=== PATIENT | male | born 1985 | race Caucasian/White ===

== ENCOUNTER 2018-12-04 15:40 | Inpatient (IN) | payer OTHER ==
[~2018-12-04] VITALS: Ht 188 cm; Wt 116.9 kg
[~2018-12-04 15:40] MED LIST: LAMO100T83 PO; TOPI25CA PO
[2018-12-04] MEDS ORDERED: LIDOCAINE/MYLANTA 40 ML BTL PO ONE (16:30)
[2018-12-04] MEDS ORDERED: SOD CHLORIDE 0.9% 100 ML ONE (18:13)
[2018-12-04] MEDS ORDERED: IOHEXOL 300MG/ML 150 ML BTL ONE (18:13)
[2018-12-04] MEDS ORDERED: ONDANSETRON 4 MG INJ IV PRN (18:30)
[2018-12-04] MEDS ORDERED: ACETAMINOPHEN 325 MG TAB PO PRN ×2 (18:30→19:00)
[2018-12-04] MEDS ORDERED: DOCUSATE SODIUM 100 MG CAP PO PRN (19:00)
[2018-12-04] MEDS ORDERED: HYDROCODONE/APAP (5/325) TAB PO PRN (19:00)
[2018-12-04] MEDS ORDERED: ONDANSETRON 4 MG TAB PO PRN (19:00)
[2018-12-04] MEDS ORDERED: NACL 0.9% 3 ML SYG IV SCH (19:00)
[2018-12-04] MEDS: HEPARIN 5,000 UNIT/1 ML VIAL SC SCH (21:02)
[2018-12-04 22:15] VITALS: BP 109/67; PULSE 83
[2018-12-04 22:24] VITALS: Ht 188 cm; Wt 116.9 kg
[2018-12-04] MEDS: FAMOTIDINE 20 MG TAB PO SCH (22:53)
[2018-12-05] MEDS: HEPARIN 5,000 UNIT/1 ML VIAL SC SCH ×2 (02:48→14:00)
[2018-12-05 03:00] VITALS: BP 91/58; PULSE 54
[2018-12-05] MEDS ORDERED: DEXTROSE 5%-0.45% NACL 1,000 ML IV SCH (07:00)
[2018-12-05 07:47] VITALS: BP 101/64; PULSE 50; RESP 18
[2018-12-05] MEDS: FAMOTIDINE 20 MG TAB PO SCH (08:41)
[2018-12-05] MEDS ORDERED: LIDOCAINE 1% (MDV) 20 ML INJ ONE (12:14)
[2018-12-05] MEDS ORDERED: TOPIRAMATE 25 MG TAB PO SCH (21:00)
[2018-12-05] MEDS ORDERED: LAMOTRIGINE 25 MG TAB PO SCH (21:00)
== END 2018-12-05 19:05 | disposition home health service (06) | DRG 607 ==
LOC: FTE 15:40 → MS1 18:03
PROVIDERS: ADMIT Internal Medicine; ATTEND Internal Medicine
PROC: 0J9730Z Drainage of Back Subcutaneous Tissue and Fascia with Drainage Device, Percutaneous Approach (ICD-10-PCS; principal; 2018-12-05)
DX: R22.9 Localized swelling, mass and lump, unspecified (principal); R62.50 Unspecified lack of expected normal physiological development in childhood; F79 Unspecified intellectual disabilities
CPT/HCPCS: 36415; 71045; 71260; 74177; 77012; 80048; 80053; 81003; 83036; 83605; 84436; 84479; 84484; 85025; 85610; 85730; 87070; 87075; 87086; 87102; 87116; 93005; C1729; J7042; Q9967